=== PATIENT | female | born 1970 | race Caucasian/White ===

== ENCOUNTER 2019-10-18 15:32 | Outpatient (CLI) | payer BC, SELFPAY ==
--- NOTE | ~2019-10-18 | XR_ITS ---
EXAMINATION: XR lumbar spine 2-3V, XR sacroiliac joints min 3V EXAM DATE: 10/18/2019 15:58 (accession [id number]), 10/18/2019 15:59 (accession [id number]) INDICATION: Low back, sacral pain. TECHNIQUE: Lumber spine frontal, lateral, lateral L5-S1 projections for interpretation. Frontal, stevie ateral oblique projections of the sacroiliac joints. There are no prior studies for comparison. FINDINGS: There is mild to moderate lumbar facet arthropathy. The vertebral bodies are aligned in th e AP dimension. Vertebral body and disc heights are well-maintained. Sacrum, sacroiliac joints, sacra l arcuate lines are intact. Sacroiliac joints are unremarkable and symmetric. Paraspinal soft tissue is unremarkable. IMPRESSION: Mild to moderate lumbar facet arthropathy. Reviewed, dictated and finalized at location A. IMPRESSION: Mild to moderate lumbar facet arthropathy.
== END 2019-10-18 15:33 | disposition home or self-care (01) ==
PROVIDERS: PCP Internal Medicine; Visit Provider Internal Medicine
DX: M54.5 Low back pain (principal)
CPT/HCPCS: 72100; 72202

== ENCOUNTER 2022-02-27 09:04 | Outpatient (CLI) | payer OTHER, SELFPAY ==
[2022-02-27 09:17] LABS: Basophils Absolute Auto 0.05 K/mm3 (0.00-0.10); Basophils Percent Auto 0.7 % (0.0-1.0); Eosinophils Absolute Auto 0.14 K/mm3 (0.02-0.50); Hematocrit 35.5 % (35.0-49.0); Hemoglobin 11.7 g/dL (12.0-15.0); Immature Granulocyte Absolute 0.02 K/mm3 (0.00-0.00); Immature Granulocyte Percent A 0.3 % (0.0-0.0); Lymphocytes Absolute Auto 1.32 K/mm3 (1.10-4.50); Lymphocytes Percent Auto 19.2 % (18.0-42.0); Mean Corpuscular Hemoglobin 29.4 pg (27.0-31.0); Mean Corpuscular Volume 89.2 fL (78.0-102.0); Mean Platelet Volume 9.2 fl (9.2-11.8); Monocytes Absolute Auto 0.65 K/mm3 (0.10-0.90); Monocytes Percent Auto 9.5 % (2.0-11.0); Neutrophils Absolute Auto 4.7 K/mm3 (1.7-7.2); Neutrophils Percent Auto 68.3 % (50.0-70.0); Platelet Count Result 317 K/mm3 (150-420); Red Blood Count 3.98 M/mm3 (4.20-5.40); Red Cell Distribution Width 13.2 % (11.6-14.4); White Blood Count 6.9 K/mm3 (4.8-10.8)
[2022-02-27 09:25] LABS: Add Urine Microscopic? YES; Appearance Urine Clear (Clear); Bilirubin Urine Negative (Negative); Blood Urine 3+ (Negative); Color Urine Yellow (Yellow); Glucose Urine UA Negative (Negative); Ketones Urine Negative (Negative); Leukocyte Esterase Ur Negative LEU/UL (Negative); Nitrate Urine Negative (Negative); Protein Urine Negative (Negative); Specific Grav Ur <= 1.005 (1.010-1.020); Urobilinogen Urine 0.2 mg/dL (0.2-1.0); pH Urine 6.5 (5.0-8.0)
[2022-02-27 09:29] LABS: Bacteria Urine Trace /hpf; RBC Urine 21-50 /hpf (0-2); Squamous Epithelial Cell Urine Few /hpf (Few); WBC Urine None seen /hpf (0-3)
[2022-02-27 09:42] LABS: Alanine Aminotransferase 28 U/L (14-59); Albumin Level 3.8 g/dL (3.4-5.0); Alkaline Phosphatase 62 U/L (46-116); Anion Gap 6 mmol/L (8-16); Aspartate Amino Transferase 21 U/L (15-37); Bilirubin,Total 0.4 mg/dL (0.00-1.00); Blood Urea Nitrogen 8 mg/dL (7-18); Calcium 8.3 mg/dL (8.5-10.1); Carbon Dioxide 29 mmol/L (21-32); Chloride 100 mmol/L (98-108); Cholesterol 199 mg/dL (0-200); Estimated Glomerular Filt Rate > 60; Free T4 Free Thyroxine 0.88 ng/dL (0.76-1.46); Glucose 87 mg/dL (70-99); HDL Direct 76 mg/dL (40-60); LDL Cholesterol Calculated 112 mg/dL (<130); Osmolality Calculated 277 mOsm/kg (285-295); Sodium 135 mmol/L (136-145); Thyroid Stimulating Hormone 1.43 uIU/mL (0.36-3.74); Triglycerides 54 mg/dL (0-150)
== END 2022-02-27 09:05 | disposition home or self-care (01) ==
LOC: CHSLAB 09:08
PROVIDERS: PCP Internal Medicine; Visit Provider Internal Medicine
DX: Z00.00 Encounter for general adult medical examination without abnormal findings (principal)
CPT/HCPCS: 36415; 80053; 80061; 81001; 84439; 84443; 85025

== ENCOUNTER 2022-10-13 17:45 | Outpatient (CLI) | payer OTHER, SELFPAY | END 2022-10-13 17:46 | disposition home or self-care (01) | LOC: CHSIMG 17:46 | PROVIDERS: PCP Internal Medicine; Visit Provider Internal Medicine | DX: R22.42 Localized swelling, mass and lump, left lower limb (principal) | CPT/HCPCS: 99199 ==

== ENCOUNTER 2022-10-14 13:28 | Outpatient (CLI) | payer OTHER, SELFPAY ==
--- NOTE | ~2022-10-14 | XR_ITS ---
XR ankle LT min 3V 10/14/2022 13:50 INDICATION: Left ankle pain PROCEDURE: 4 views left ankle COMPARISON: No prior studies for comparison. FINDINGS: Fracture, dislocation or subluxation is not identified. Ankle mortise intact. The soft tiss ues appear within normal limits. No foreign bodies are identified. IMPRESSION: 1: NO ACUTE BONE OR JOINT ABNORMALITY IDENTIFIED. Reviewed, dictated and finalized at location B.
--- NOTE | ~2022-10-14 | MM_ITS ---
EXAMINATION: MM screening [facility] BI w liam HISTORY: Screening mammogram TECHNIQUE: Craniocaudal and mediolateral oblique 3-D tomosynthesis images were obtained and synthetic 2-D images were generated. CAD analysis was submitted and interpreted. COMPARISON: 03/17/2019, 03/07/2018, 11/30/2016 BREAST PARENCHYMAL COMPOSITION: The breasts are heterogeneously dense, which may obscure small masses . FINDINGS: No suspicious mass, calcification, or architectural distortion are identified in either domingo ast to suggest malignancy. There has been no suspicious interval change. IMPRESSION: 1. No mammographic evidence of malignancy. 2. Recommend routine screening mammography in one year. BI-RADS Category 1: Negative Reviewed, dictated and finalized at location A.
== END 2022-10-14 13:29 | disposition home or self-care (01) ==
LOC: CHSIMG 13:30
PROVIDERS: PCP Internal Medicine; Visit Provider Internal Medicine
DX: Z12.31 Encounter for screening mammogram for malignant neoplasm of breast (principal); M25.572 Pain in left ankle and joints of left foot
CPT/HCPCS: 73610; 77063; 77067

== ENCOUNTER 2022-10-26 14:15 | Outpatient (CLI) | payer OTHER, SELFPAY ==
--- NOTE | 2022-10-26 01:00 | ECHO_ITS ---
Patient Info Name: Milagros Garg Age: 52 years : 1970 Gender: Female Ht: 66 in Wt: 185 lbs BSA: 2.00 m2 HR: 54 bpm BP: 120 / 66 mmHg Heart Rhythm: Sinus Rhythm Technical Quality: Good Exam Date: 10/26/2022 2:18 PM Exam Location: [facility] Patient Status: Outpatient Admit Date: 10/26/2022 Staff Ordering Physician: Jose Kidd MD Ppap Coordinator: DYLAN Attending Provider: Jose Kidd MD Referring Physician: Bernabe VARGAS; Exam Type: CA echo doppler color flow Study Info Indications R55 - Syncope and collapse Complete two-dimensional, color flow and Doppler transthoracic echocardiogram is performed. Summary 1. Complete two-dimensional, color flow and Doppler transthoracic echocardiogram is performed. 2. Left ventricular chamber dimension is normal. 3. Left ventricular systolic function is normal, estimated at 65-70%. 4. The left ventricular diastolic function is normal. 5. E/e' 9 is minimally elevated. 6. Right atrial chamber dimension is mildly enlarged. 7. There is trace mitral valve regurgitation. 8. There is mild to moderate tricuspid valve regurgitation. 9. No pulmonary hypertension, estimated pulmonary arterial systolic pressure is 18 mmHg. 10. There is trace pulmonic regurgitation. Left Ventricle E/e' 9 is minimally elevated. Left ventricular chamber dimension is normal. Left ventricular systolic function is normal, estimated at 65-70%. The left ventricular diastolic function is normal. Right Ventricle Right ventricular systolic function is normal and with normal TAPSE 2.9 cm. Right ventricular chamber dimension is normal. Left Atria Left atrial chamber dimension is normal. Right Atria Right atrial chamber dimension is mildly enlarged. Aortic Valve The aortic valve is trileaflet. There is no aortic valve stenosis. There is no aortic valve regurgitation. Pulmonic Valve There is trace pulmonic regurgitation. Mitral Valve There is no mitral valve stenosis. There is trace mitral valve regurgitation. Tricuspid Valve There is mild to moderate tricuspid valve regurgitation. No pulmonary hypertension, estimated pulmonary arterial systolic pressure is 18 mmHg. Pericardium/Pleural There is no pericardial effusion. Inferior Vena Cava Normal inferior vena cava with >50% collapse upon inspiration consistent with normal right atrial pressure, 5 mmHg. Aorta The aortic root size at the sinus of Valsalva is normal. Left Ventricular Outflow Tract Name Value Normal LVOT 2D LVOT Diameter 2.2 cm LVOT Doppler LVOT Peak Velocity 126 cm/s LVOT Peak Gradient 6 mmHg LVOT Mean Gradient 0 mmHg LVOT VTI 28 cm LVOT VTI/AV VTI Ratio 0.8 LVOT Stroke Volume 103 ml Pulmonic Valve Name Value Normal RVOT Doppler RVOT Peak Gradient 3 mmHg
== END 2022-10-26 14:16 | disposition home or self-care (01) ==
LOC: CHSIMG 14:16
PROVIDERS: PCP Internal Medicine; Visit Provider Internal Medicine
DX: R55 Syncope and collapse (principal); I07.1 Rheumatic tricuspid insufficiency
CPT/HCPCS: 93306

== ENCOUNTER 2022-10-30 09:55 | Outpatient (CLI) | payer OTHER, SELFPAY ==
[2022-10-30 10:19] LABS: Basophils Absolute Auto 0.06 K/mm3 (0.00-0.10); Eosinophils Absolute Auto 0.12 K/mm3 (0.02-0.50); Hematocrit 41.4 % (35.0-49.0); Hemoglobin 13.4 g/dL (12.0-15.0); Immature Granulocyte Absolute 0.07 K/mm3 (0.00-0.00); Immature Granulocyte Percent A 1.2 % (0.0-0.0); Lymphocytes Percent Auto 20.4 % (18.0-42.0); Mean Corpuscular HGB Conc 32.4 g/dL (32.0-36.0); Mean Corpuscular Hemoglobin 29.6 pg (27.0-31.0); Mean Corpuscular Volume 91.4 fL (78.0-102.0); Mean Platelet Volume 8.8 fl (9.2-11.8); Monocytes Absolute Auto 0.41 K/mm3 (0.10-0.90); Neutrophils Percent Auto 68.4 % (50.0-70.0); Platelet Count Result 441 K/mm3 (150-420); Red Blood Count 4.53 M/mm3 (4.20-5.40); Red Cell Distribution Width 13.2 % (11.6-14.4); White Blood Count 5.9 K/mm3 (4.8-10.8)
[2022-10-30 13:23] LABS: Alanine Aminotransferase 23 U/L (14-59); Albumin Level 4.3 g/dL (3.4-5.0); Alkaline Phosphatase 74 U/L (46-116); Anion Gap 9 mmol/L (8-16); Aspartate Amino Transferase 24 U/L (15-37); Bilirubin,Total 0.3 mg/dL (0.00-1.00); Blood Urea Nitrogen 11 mg/dL (7-18); Calcium 9.3 mg/dL (8.5-10.1); Carbon Dioxide 29 mmol/L (21-32); Chloride 103 mmol/L (98-108); Estimated Glomerular Filt Rate > 60; Glucose 69 mg/dL (70-99); Osmolality Calculated 289 mOsm/kg (285-295); Potassium 4.3 mmol/L (3.5-5.1); Sodium 141 mmol/L (136-145); Total Protein 7.7 g/dL (6.4-8.2)
[2022-11-04 21:16] LABS: Cortisol Random 15.2 mcg/dL (***)
[2022-11-06 04:52] LABS: FSH 104.7 mIU/mL (***); LH 58.6 mIU/mL (***); Prolactin 11.6 ng/mL (***)
[2022-11-13 16:28] LABS: Cortisol, Saliva 0.19 mcg/dL
--- NOTE | 2022-11-25 09:38 | WPDHOLTEREM ---
Holter/Event Monitor Holter/Event Monitor Date of procedure: 10/30/22 Holter/Event Procedure: Event Monitor Indications: Syncope Conclusion: 1. 30 day event monitor between 10/30/22-11/24/22. This is an auto trigger event monitor only. There are 10 available transmissions for analysis. 2. Underlying rhythm is sinus rhythm. HR range 51-83 bpm. 3. Based on transmissions, no supraventricular or ventricular arrhythmias. 4. No significant pauses greater than 2 seconds. 5. No symptoms available for correlation.
== END 2022-10-30 09:56 | disposition home or self-care (01) ==
LOC: CHSCARD 09:57
PROVIDERS: PCP Internal Medicine; Visit Provider Internal Medicine
DX: R55 Syncope and collapse (principal); E87.1 Hypo-osmolality and hyponatremia
CPT/HCPCS: 36415; 80053; 82530; 82533; 83001; 83002; 83735; 84146; 85025; 93270

== ENCOUNTER 2022-11-06 11:21 | Outpatient (CLI) | payer OTHER, SELFPAY ==
[2022-11-11 05:54] LABS: C-Peptide 2.31 ng/mL (0.80-3.85)
[2022-11-12 19:47] LABS: Insulin Level Total 10.8 uIU/mL (<=19.6)
== END 2022-11-06 11:22 | disposition home or self-care (01) ==
LOC: CHSLAB 11:24
PROVIDERS: PCP Internal Medicine; Visit Provider Internal Medicine
DX: E16.2 Hypoglycemia, unspecified (principal)
CPT/HCPCS: 36415; 83525; 84681

== ENCOUNTER 2022-12-12 08:30 | Outpatient (CLI) | payer OTHER, SELFPAY ==
--- NOTE | ~2022-12-12 | MR_ITS ---
EXAMINATION: MR brain/brain stem wo/w con DATE: 12/12/2022 11:15 INDICATION: Syncope. Seizure. TECHNIQUE: Magnetic resonance imaging (MRI) of the brain and brainstem was performed without and with 14 mL MultiHance intravenous contrast. COMPARISON: None. FINDINGS: There is no intracranial hemorrhage, acute infarction, or abnormal intracranial mass lesion . The ventricles are normal in size. The paranasal sinuses are clear. The orbits are normal. The mast oid air cells are normal. IMPRESSION: 1. Normal brain. Reviewed, dictated and finalized at location A. IMPRESSION: 1. Normal brain.
== END 2022-12-12 08:31 | disposition home or self-care (01) ==
LOC: CHSIMG 08:31
PROVIDERS: PCP Internal Medicine; Visit Provider Internal Medicine
DX: R55 Syncope and collapse (principal); R53.83 Other fatigue
CPT/HCPCS: 70553; A9577

== ENCOUNTER 2023-01-01 00:07 | Day surgery (SDC) | payer OTHER, SELFPAY ==
[2022-11-13 10:50] VITALS: BMI 22.3
--- NOTE | 2022-11-17 12:36 | SUR.PREOP ---
[address] Somers anesthesiologist regarding patient's syncopal episodes and her currently wearing a heart monitor. Dr. Somers wants the patient to complete the 30 day heart monitor and have her appointment with Dr. Amaya on December 18 prior to her having her colonoscopy procedure. Patient will be called and rescheduled.
[2022-12-25 11:45] VITALS: BMI 22.3
[2023-01-01 08:18] VITALS: BP 106/67; PULSE 69; RESP 18; TEMP 36.3; O2SAT 100; BMI 21.3
[2023-01-01] MEDS: LACTATED RINGERS 1,000 ML 150 ML IV CONT (08:36)
--- NOTE | 2023-01-01 08:45 | WPDANESEPPF ---
Anes - Initial Pre Proc Eval Procedure: Operation Date: 01/01/23 09:00 Proposed Procedures p Colonoscopy - Silverio Granado MD Date/Time: 01/01/23 08:45 Surgeon: Silverio Granado MD Pre Op Diagnosis: CAROLE Patient Data Age: 52 Gender: F Height: 1.68 m Weight: 60 kg Last Vital Signs Temp 97.3 F L 01/01/23 08:18 Pulse 69 01/01/23 08:18 Resp 18 01/01/23 08:18 BP 106/67 01/01/23 08:18 Pulse Ox 100 01/01/23 08:18 O2 Del Method Room Air 01/01/23 08:18 Allergies Allergy/AdvReac Type Severity Reaction Status Date / Time No Known Allergies Allergy Verified 11/13/22 10:51 Home Medications Medication Instructions Recorded Confirmed Type ferrous sulfate 325 mg (65 mg 325 mg PO DAILY 11/13/22 11/13/22 History iron) tablet lovastatin 20 mg tablet 20 mg PO DAILY 11/13/22 11/13/22 History Patient hx anesthesia problems: none Family hx anesthesia problems: none Results Review: All pre-operative results and documents have been reviewed as part of the pre-operative evaluation. [facility] Social History Social History Smoking status: Never smoker Alcohol intake: current Alcohol use details: 4 drinks over weekend Substance use: never Substance use type: does not use Living arrangements: with family Spiritual care concerns: No Anes - Eval Final PreProcedure Day of Procedure 01/01/23 08:45 Patient weight: normal Heart: regular rate and rhythm Lungs: clear to auscultation Airway: Mallampati scale class II Neurological: alert and oriented Last oral intake: >/= 8 hours ASA classification: II Emergent: no Anesthetic plan: proceed Anesthesia type and monitoring: general GIVS and standard monitoring Results Review: All pre-operative results and documents have been reviewed as part of the pre-operative evaluation. Informed Consent: The patient's anesthetic plan and its attendant risks and benefits were discussed with the patient/family/POA. Questions were solicited and answers provided to the satisfaction of the patient/family/POA.
--- NOTE | 2023-01-01 09:01 | PM.HPGS ---
History of Present Illness History of Present Illness Consent: Risks, benefits, and alternatives have been discussed and questions answered. Patient agrees to proceed with procedure. Chief complaint: CAROLE, neoplasia screening Narrative: Milagros Garg is a 52 year old female Referred for colonoscopy under the direction of Dr. Kidd. patient reports she has never previously had a colonoscopy. Weight appetite bowel movements are normal. She states that couple months ago apparently was told she had low iron CBC in our records is normal. Patient states her bowel habits are normal with no blood in her stools. She has no bleeding elsewhere. Family history noncontributory. Review of Systems Review of Systems: Review of systems noncontributory. [facility] Social History Social History Smoking status: Never smoker Alcohol intake: current Alcohol use details: 4 drinks over weekend Substance use: never Substance use type: does not use Living arrangements: with family Spiritual care concerns: No Meds Home Medications and Allergies Home Medications Medication Instructions Recorded Confirmed Type ferrous sulfate 325 mg (65 mg 325 mg PO DAILY 11/13/22 11/13/22 History iron) tablet lovastatin 20 mg tablet 20 mg PO DAILY 11/13/22 11/13/22 History Allergies Allergy/AdvReac Type Severity Reaction Status Date / Time No Known Allergies Allergy Verified 11/13/22 10:51 Vital Signs Vital Signs - 24 hr 01/01/23 08:18 Temperature 97.3 F L Pulse Rate 69 Respiratory Rate 18 Blood Pressure 106/67 Pulse Oximetry 100 Oxygen Delivery Room Air Exam Narrative: Physical exam reveals patient to be alert. Vital signs stable. HEENT exam is unremarkable. Patient is anicteric. Lungs are clear to auscultation and percussion. Heart is without murmur or extra sounds. Abdomen bowel sounds are present soft nontender with no organomegaly. Digital external rectal exam is normal. Assessment and Plan Assessment and plan (1) Encounter for screening colonoscopy: Code(s): Z12.11 - Encounter for screening for malignant neoplasm of colon Status: Acute Assessment and Plan: Patient presents for screening colonoscopy. She appears to be at average risk for colon polyps. Further recommendations may be given after endoscopy.
[2023-01-01 09:35] VITALS: BP 87/52; PULSE 64; RESP 12; O2SAT 99
[2023-01-01 09:45] VITALS: BP 95/58; PULSE 69; RESP 12; O2SAT 100
[2023-01-01 09:55] VITALS: BP 98/60; PULSE 69; RESP 14; O2SAT 100
== END 2023-01-01 10:09 | disposition home or self-care (01) ==
PROVIDERS: PCP Internal Medicine; Visit Provider Internal Medicine Gastroenterology
PROC: 0DJD8ZZ Inspection of Lower Intestinal Tract, Via Natural or Artificial Opening Endoscopic (ICD-10-PCS; CPT 45378; principal; 2023-01-01 09:00)
DX: Z12.11 Encounter for screening for malignant neoplasm of colon (principal); K64.8 Other hemorrhoids
CPT/HCPCS: 45378; J2704; J7120

== ENCOUNTER 2023-09-08 12:01 | Outpatient (CLI) | payer OTHER, SELFPAY ==
[2023-09-08 12:49] LABS: Anion Gap 7 mmol/L (4-12); Blood Urea Nitrogen 11 mg/dL (7-18); Calcium 8.9 mg/dL (8.5-10.1); Carbon Dioxide 32 mmol/L (21-32); Chloride 99 mmol/L (98-108); Estimated Glomerular Filt Rate > 60; Glucose 99 mg/dL (70-99); Osmolality Calculated 285 mOsm/kg (285-295); Potassium 4.5 mmol/L (3.5-5.1); Sodium 138 mmol/L (136-145)
== END 2023-09-08 12:02 | disposition home or self-care (01) ==
LOC: CHSLAB 12:03
PROVIDERS: PCP Internal Medicine; Visit Provider Internal Medicine
DX: E87.1 Hypo-osmolality and hyponatremia (principal)
CPT/HCPCS: 36415; 80048

== ENCOUNTER 2024-07-28 12:49 | Outpatient (CLI) | payer OTHER, SELFPAY ==
--- NOTE | ~2024-07-28 | DEXA_ITS ---
Bone Density Report Name: RONALD CHEN Age: 53 Sex: Female Ethnicity: White Date of : 1970 Indication: screening for osteoporosis; Referring Provider: Jose Kidd Study: Bone densitometry was performed. Exam Date: July 28, 2024 Accession number: [id number] Bone Density: Region BMD T-score Z-score Classification AP Spine(L1-L4) 1.085 0.3 1.3 Normal Femoral Neck (Left) 0.889 0.4 1.3 Normal Total Hip (Left) 1.018 0.6 1.2 Normal Femoral Neck (Right) 0.915 0.6 1.5 Normal Total Hip (Right) 1.013 0.6 1.2 Normal Femoral Neck Mean 0.902 0.5 1.4 Normal Total Hip Mean 1.016 0.6 1.2 Normal World Health Organization criteria for BMD impression classify patients as: Normal (T-score at or above -1.0), Osteopenia (T-score between -1.0 and -2.5), or Osteoporosis (T-score at or below -2.5). Clinical Information Provided by Patient: Has used the following medications: Vitamin D Patient maximum height was 66 No regular weight bearing exercise Drinks caffeinated beverages Onset of menses at age 13 Premenopausal Number of children 2 Impression: The patient's bone mass is within expected range for age, gender and ethnicity. Discussion: BONE DENSITY IS WITHIN EXPECTED LIMITS FOR AGE, SEX AND RACE. Bone density is within expected limits for age, sex and race at all sites measured. The patient should follow a healthful lifestyle (good nutrition with adequate calcium and vitamin D, and appropriate weight-bearing exercise). Follow-Up: Consider repeating this study in 5 years or sooner if there is some new clinical indication. Reported by: KIRA on 07/28/2024 1:12:00 PM. Reviewed, dictated and finalized at location A.
--- NOTE | ~2024-07-28 | MM_ITS ---
EXAMINATION: MM screening [facility] BI w liam HISTORY: Screening TECHNIQUE: Craniocaudal and mediolateral oblique 3-D tomosynthesis images were obtained and synthetic 2-D images were generated. CAD analysis was submitted and interpreted. COMPARISON: Comparison to multiple prior studies sequentially, with oldest reviewed study dated 07/02. BREAST PARENCHYMAL COMPOSITION: Dense: The breasts are heterogeneously dense, which may obscure small masses FINDINGS: There is no evidence of suspicious mass, calcification, or architectural distortion to sugg est malignancy in either breast. There has been no suspicious interval change. IMPRESSION: 1. No mammographic evidence of malignancy. 2. Recommend routine screening mammography in one year. BI-RADS Category 1: Negative Reviewed, dictated and finalized at location L. RAPHY TEACHER
--- OUTSIDE RECORDS SUMMARY | 2024-07-28 12:56 | XMS_ITS ---
Author Organization Unknown Medications Medication Instructions Effective Dates (start - stop) Status lovastatin 20 MG Oral Tablet [id number] 0:00:00Z - Completed lovastatin 20 MG Oral Tablet [id number] 0:00:00Z - Completed betamethasone 0.5 MG/ML / clotrimazole 10 MG/ML Topical Cream - Completed lovastatin 20 MG Oral Tablet [id number] 0:00:00Z - Completed lovastatin 20 MG Oral Tablet [id number] 0:00:00Z - Completed Patient Care team information Name Category Status Period Participants - - Proposed period not known -
--- OUTSIDE RECORDS SUMMARY | 2024-07-28 12:56 | XMS_ITS | Clinical Summary ---
Author Organization [facility] [place] [facility] [address] Address [address] [place] [address] Care Team Providers Care Equipment Associate Name Role Phone Yane Norwood Primary Care Provider Unavailab le Allergies No known active allergies Medications lovastatin ER (ALTOPREV) 20 mg 24 hr tablet Take 1 tablet (20 mg total) by mouth nightly Active Active Problems Problem Noted Date Diagnosed Date Syncope and collapse 12/18/2022 Lipid screening 12/18/2022 Hyperlipidemia 03/10/2013 Overview (09/11/2016): Hyperlipidemia Immunizations Immunization Administration Dates Next Due Influenza, Split 03/10/2013 Tdap 12/18/2005 Surgical History Surgery Date Site/Laterality Comments OTHER SURGICAL HISTORY HUSB HAS VASECTOMY Family History Medical History Relation Name Comments Bladder Cancer Father Cancer -bladd er; Prostate cancer Father Cancer -pros [place]raz[place]; Diabetes type II Father's Sister Diabetes -Type 2; Alzheimer's disease Paternal Grandfather Alzheimer's Disease; Hyperlipidemia Sister 2 Hyperlipidemi a; Relation Name Status Comments Father Father's Sister Paternal Grandfather Sister 1 Alive Sister 2 Social History Tobacco Use Types Packs/Day Years Used Date Smoking Tobacco: Never Smokeless Tobacco: Never Tobacco Cessation:Counseling Given: Not Answered Alcohol Use Standard Drinks/Week Comments Yes 0 (1 standard drink = 0.6 oz pur e alcohol) Comments Unknown Sex and Gender Information Value Date Recorded Sex Assigned at Not on file 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[employer] Gender Identity Not on file Sexual Orientation Not on file Obstetrics History Last Filed Vital Signs Vital Sign Reading Time Taken Comments Blood Pressure 90/60 12/18/2022 11:30 AM CDT Pulse 63 12/18/2022 11:30 AM CDT Temperature - - Respiratory Rate - - Oxygen Saturation 97% 12/18/2022 11:30 AM CDT Inhaled Oxygen Concentration - - Weight 61.7 kg (136 lb) 12/18/2022 10:22 AM CDT Height 167.6 cm (5' 6 ) 12/18/2022 10:22 AM CDT Body Mass Index 21.95 12/18/2022 10:22 AM CDT Plan of Treatment Health Maintenance Due Date Last Done Comments Breast Cancer Screening-Mammogram 1970 Colon Cancer Screening-Colonoscopy 1970 Depression Screening 1970 Hepatitis C Screening 1970 Hepatitis B Screening 08/29/1989 Regular Well Visit/Exam 18-64 08/29/1989 Cervical Cancer Screening 03/10/20142012, 03/10/2013 DTaP/Tdap/Td Vaccine (2 - Td or Tdap) 12/19/2015 12/18/2005 Zoster Vaccine (1 of 2) 08/29/2021 Influenza Vaccine (#1) 2024 03/10/2013 Pneumococcal vaccine <65 Aged Out No longer eligible based on patient's age to complete this topic Procedures Procedure Name Priority Date/Time Associated Diagnosis Comments THINPREP PAP WITH HPV, HIGH RISK Routine 03/10/2013 10:07 AM CDT from Last 3 Months or Most Recently Relevant to Health Maintenance Results * ThinPrep Pap with HPV, High Risk (03/10/2013 10:07 AM CDT) SOURCE: SEE NOTE [facility] HISTORICAL RESULTS Comment:Cervix, Endocervix CLINICAL INFORMATION: SEE NOTE [facility] HISTORICAL RESULTS Comment:Information not prov ided LMP SEE NOTE [facility] HISTORICAL RESULTS Comment:02/25/13 Previous Pap SEE NOTE [facility] HISTORICAL RESULTS Comment:12/01/07 Prev. Bx SEE NOTE [facility] HISTORICAL RESULTS Comment:Information not prov ided Pap, specimen adequacy SEE NOTE [facility] HISTORICAL RESULTS Comment: Satisfactory for evaluation. Endocervical/transformation zone component present. HPV interp SEE NOTE [facility] HISTORICAL RESULTS Comment:Negative for intraep ithelial lesion or malignancy. Lactobacillus species SEE NOTE [facility] HISTORICAL RESULTS Comment: This Pap test has been evaluated with computer assisted technology. Financial Services Representative SEE NOTE [facility] HISTORICAL RESULTS Comment: LMT, CT(ASCP) Test performed at [address] [address] Director: JENNIFER LOPEZ DO, MPH 03/10/2013 10:0 7 AM CDT us Yane Norwood LAB PATHOLOGY ORDERABLES Final R esult [facility] HISTORICAL RESULTS from Last 3 Months or Most Recently Relevant to Health Maintenance Insurance [facility] Care Teams Equipment Associate Relationship Specialty Start Date End Date Yane Norwood PCP - General 02/10/12
--- OUTSIDE RECORDS SUMMARY | 2024-07-28 12:56 | XMS_ITS | Referral Summary ---
Author Organization [facility] [address] Address [address] [place] [address] Care Team Providers Care Technical Aid Name Role Phone Yane Norwood Primary Care [...] Next Due Influenza, Split 03/10/2013 Tdap 12/18/2005 Social History Tobacco Use Types Packs/Day Years Used Date Smoking Tobacco: Never Smokeless Tobacco: Never Tobacco Cessation:Counseling Given: Not Answered Alcohol Use Standard Drinks/Week Comments Yes 0 (1 standard drink = 0.6 oz pur e alcohol) Comments Unknown Sex and Gender Information Value Date Recorded Sex Assigned at Not on file 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 Machinist First Class SEE NOTE [facility] HISTORICAL RESULTS Comment: LMT, CT(ASCP) Test performed at [facility] [address] Director: JENNIFER LOPEZ DO, MPH 03/10/2013 10:0 7 AM CDT Yane Norwood LAB PATHOLOGY ORDERABLES Final R esult [facility] HISTORICAL RESULTS from Last 3 Months or Most Recently Relevant to Health Maintenance Insurance [facility] Care Teams Technical Aid Relationship Specialty Start Date End Date Yane Norwood PCP - General 02/10/12
== END 2024-07-28 12:50 | disposition home or self-care (01) ==
LOC: CHSIMG 12:51
PROVIDERS: PCP Internal Medicine; Visit Provider Internal Medicine
DX: Z12.31 Encounter for screening mammogram for malignant neoplasm of breast (principal); Z78.0 Asymptomatic menopausal state
CPT/HCPCS: 77063; 77067; 77080

== ENCOUNTER 2024-08-23 13:44 | Outpatient (CLI) | payer OTHER, SELFPAY ==
--- NOTE | 2024-08-23 14:30 | NEURO_ITS ---
Impression: # Non diabetic complains off numbness of hands. ? # Bilateral Carpal Tunnel Syndrome right more than left. # No ulnar neuropathy. ? # Normal needle/EMG exam. Clinical correlation recommended he Nerve Conduction Studies Anti Sensory Summary Table ?Stim Site NR Peak (ms) P-T Amp (?V) Site1 Site2 Delta-P (ms) Dist (cm) Rodrick (m/s) Left Median Anti Sensory (2-3nd Digit) Wrist ? 4.1 60.0 Wrist 2-3nd Digit 4.1 14.0 34 Wrist ? 4.2 17.9 Wrist 2-3nd Digit 4.1 14.0 34 Right Median Anti Sensory (2-3nd Digit) Wrist ? 4.7 41.3 Wrist 2-3nd Digit 4.7 14.0 30 Wrist ? 5.1 42.9 Wrist 2-3nd Digit 4.7 14.0 30 Left Radial Anti Sensory (Base 1st Digit) Wrist ? 2.0 42.7 Wrist Base 1st Digit 2.0 0.0 Right Radial Anti Sensory (Base 1st Digit) Wrist ? 2.6 16.0 Wrist Base 1st Digit 2.6 0.0 Left Ulnar Anti Sensory (5th Digit) Wrist ? 2.8 47.4 Wrist 5th Digit 2.8 14.0 50 Right Ulnar Anti Sensory (5th Digit) Wrist ? 2.7 70.4 Wrist 5th Digit 2.7 14.0 52 Motor Summary Table ?Stim Site NR Onset (ms) O-P Amp (mV) Site1 Site2 Delta-0 (ms) Dist (cm) Rodrick (m/s) Left Median Motor (Abd Poll Brev) Wrist ? 5.0 5.1 Elbow Wrist 4.3 26.0 60 Elbow ? 9.3 5.8 Right Median Motor (Abd Poll Brev) Wrist ? 3.9 5.4 Elbow Wrist 5.1 27.0 53 Elbow ? 9.0 5.7 Left Ulnar Motor (Abd Dig Minimi) Wrist ? 2.6 6.2 A Elbow Wrist 4.9 29.0 59 A Elbow ? 7.5 6.7 Right Ulnar Motor (Abd Dig Minimi) Wrist ? 2.8 10.6 A Elbow Wrist 5.2 29.0 56 A Elbow ? 8.0 9.2 F Wave Studies ?NR F-Lat (ms) L-R F-Lat (ms) Left Median (Mrkrs) (Abd Poll Brev) ? 29.50 0.77 Right Median (Mrkrs) (Abd Poll Brev) ? 30.28 0.77 Left Ulnar (Mrkrs) (Abd Dig Min) ? 28.28 0.75 Right Ulnar (Mrkrs) (Abd Dig Min) ? 27.53 0.75 EMG ?Side Muscle Nerve Root Ins Act Fibs Amp Dur Recrt Comment Right 1stDorInt Ulnar C8-T1 Nml Nml Nml Nml Nml Right Ext Indicis Radial (Post Int) C7-8 Nml Nml Nml Nml Nml Right Ext Digitorum Radial (Post Int) C7-8 Nml Nml Nml Nml Nml Right BrachioRad Radial C5-6 Nml Nml Nml Nml Nml Right PronatorTeres Median C6-7 Nml Nml Nml Nml Nml Right Abd Poll Brev Median C8-T1 Nml Nml Nml Nml Nml Right ABD Dig Min Ulnar C8-T1 Nml Nml Nml Nml Nml Left 1stDorInt Ulnar C8-T1 Nml Nml Nml Nml Nml Left Ext Indicis Radial (Post Int) C7-8 Nml Nml Nml Nml Nml Left Ext Digitorum Radial (Post Int) C7-8 Nml Nml Nml Nml Nml Left BrachioRad Radial C5-6 Nml Nml Nml Nml Nml Left PronatorTeres Median C6-7 Nml Nml Nml Nml Nml Left Abd Poll Brev Median C8-T1 Nml Nml Nml Nml Nml Left ABD Dig Min Ulnar C8-T1 Nml Nml Nml Nml Nml Right FlexPolLong Median (Ant Int) C7-8 Nml Nml Nml Nml Nml Right Abd Poll Long Radial (Post Int) C7-8 Nml Nml Nml Nml Nml Left FlexPolLong Median (Ant Int) C7-8 Nml Nml Nml Nml Nml Left Abd Poll Long Radial (Post Int) C7-8 Nml Nml Nml Nml Nml MTDD
--- OUTSIDE RECORDS SUMMARY | 2024-08-23 15:25 | XMS_ITS | Clinical Summary ---
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 Black Off Worker SEE NOTE [facility] HISTORICAL RESULTS Comment: LMT, CT(ASCP) Test performed at [address] [address] Director: JENNIFER LOPEZ DO, MPH 03/10/2013 10:0 7 AM CDT us Yane Norwood LAB PATHOLOGY ORDERABLES Final R esult [facility] HISTORICAL RESULTS from Last 3 Months or Most Recently Relevant to Health Maintenance Insurance [facility] Care Teams Sawmill Hand Relationship Specialty Start Date End Date Yane Norwood PCP - General 02/10/12
--- OUTSIDE RECORDS SUMMARY | 2024-08-23 15:25 | XMS_ITS | Referral Summary ---
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 Novelty Dipper SEE NOTE [facility] HISTORICAL RESULTS Comment: LMT, CT(ASCP) Test performed at [id number] [id number] Director: JENNIFER LOPEZ DO, MPH 03/10/2013 10:0 7 AM CDT Yane [facility]wood LAB PATHOLOGY ORDERABLES Final R esult [facility] HISTORICAL RESULTS from Last 3 Months or Most Recently Relevant to Health Maintenance Insurance [facility] Care Teams Production Reproduction Manager Relationship Specialty Start Date End Date Yane Norwood PCP - General 02/10/12
== END 2024-08-23 13:45 | disposition home or self-care (01) ==
PROVIDERS: PCP Internal Medicine; Visit Provider Internal Medicine
DX: G56.03 Carpal tunnel syndrome, bilateral upper limbs (principal)
CPT/HCPCS: 95886; 95911